=== PATIENT | female | born 1960 | race Two or more races ===

== ENCOUNTER 2020-08-16 20:01 | Emergency (ER) | payer MEDICAID, OTHER ==
[~2020-08-16] VITALS: Ht 162.6 cm; Wt 81.6 kg
[2020-08-16 20:53] LABS: Basophils # (auto) 0 10 ^3/uL (0-0.2); Basophils % (auto) 0.3 % (0.0-2.0); Eosinophils # (auto) 0.1 10 ^3/uL (0-0.8); Eosinophils % (auto) 1.1 % (0.0-7.0); Hematocrit 40.7 % (36.0-46.0); Hemoglobin 14.2 g/dL (12.2-16.2); Lymphocytes # (auto) 2.8 10 ^3/uL (0.4-5.4); Lymphocytes % (auto) 34.1 % (10.0-50.0); Mean Corpuscular Hemoglobin 30.7 pg (28.0-32.0); Mean Corpuscular Hgb Conc. 34.8 g/dL (32.0-36.0); Mean Corpuscular Volume 88.3 fL (80.0-100.0); Monocytes # (auto) 0.3 10 ^3/uL (0-1.3); Monocytes % (auto) 3.3 % (0.0-12.0); Neutrophils % (auto) 61.2 % (37.0-80.0); Nucleated Red Blood Cells % 0.1 %; Red Blood Cells 4.62 10^6/uL (4.0-5.20); Red Cell Distribution Width 14.2 % (11.8-14.3); White Blood Cell 8.2 10^3/uL (4.4-10.8)
[2020-08-16 21:00] LABS: Albumin 3.9 g/dL (3.4-5.0); Anion Gap 4 (5-15); Calcium 8.8 mg/dL (8.5-10.1); Carbon Dioxide 28 mmol/L (21-32); Chloride 112 mmol/L (98-107); Glucose 103 mg/dL (74-106); Potassium 3.9 mmol/L (3.5-5.1); Sodium 144 mmol/L (136-145)
[2020-08-16 21:05] LABS: Alanine Aminotransferase 39 U/L (13-56); Alkaline Phosphatase 130 U/L (45-117); Aspartate Aminotransferase 27 U/L (15-37); Bilirubin, Total 0.3 mg/dL (0.2-1.0); GFR African American 98 mL/min; GFR Non-African American 81 mL/min; Total Protein 7.3 g/dL (6.4-8.2)
[2020-08-16 21:11] LABS: Urine Bacteria FEW /hpf (None Seen); Urine Blood Negative /uL (Negative); Urine Mucus FEW (None Seen); Urine Specific Gravity 1.026 (1.001-1.035); Urine WBC 1 /hpf (0 - 5)
[2020-08-16] MEDS ORDERED: ASPirin 81 mg TAB PO ONE (21:15)
[2020-08-16 21:58] LABS: BUN/Creatinine Ratio 17.9; Blood Urea Nitrogen 14 mg/dL (7-18)
[2020-08-16 22:06] LABS: INR 0.97 (0.9-1.15); Partial Thromboplastin Time 24.9 sec (23.0-31.2)
[2020-08-17 00:18] VITALS: BP 122/82
== END 2020-08-17 00:21 | disposition home or self-care (01) ==
LOC: ER 20:01
DX: R07.89 Other chest pain (principal); N39.0 Urinary tract infection, site not specified
CPT/HCPCS: 36415; 71045; 80053; 81001; 83735; 83880; 84443; 84484; 85025; 85049; 85379; 85610; 85730; 93005

== ENCOUNTER 2022-02-21 12:36 | Emergency (ER) | payer MEDICAID ==
[~2022-02-21] VITALS: Ht 160 cm; Wt 80.5 kg
[2022-02-21 13:33] LABS: Urine Bacteria NONE SEEN /hpf (None Seen); Urine Blood Negative /uL (Negative); Urine Mucus FEW (None Seen); Urine Specific Gravity 1.024 (1.001-1.035); Urine WBC 5 /hpf (0 - 5)
[2022-02-21 13:46] VITALS: BP 110/60
[2022-02-21 14:17] LABS: Basophils # (auto) 0.1 10 ^3/uL (0-0.2); Basophils % (auto) 0.9 % (0.0-2.0); Eosinophils # (auto) 0.1 10 ^3/uL (0-0.8); Eosinophils % (auto) 1.1 % (0.0-7.0); Hematocrit 42.3 % (36.0-46.0); Lymphocytes # (auto) 2.3 10 ^3/uL (0.4-5.4); Lymphocytes % (auto) 33.9 % (10.0-50.0); Mean Corpuscular Hemoglobin 29.6 pg (28.0-32.0); Mean Corpuscular Hgb Conc. 33.2 g/dL (32.0-36.0); Mean Corpuscular Volume 89.1 fL (80.0-100.0); Monocytes # (auto) 0.3 10 ^3/uL (0-1.3); Monocytes % (auto) 4.4 % (0.0-12.0); Neutrophils # (auto) 4.1 10 ^3/uL (1.6-8.6); Neutrophils % (auto) 59.7 % (37.0-80.0); Nucleated Red Blood Cells % 0.2 %; Red Blood Cells 4.74 10^6/uL (4.0-5.20); Red Cell Distribution Width 13.9 % (11.8-14.3); White Blood Cell 6.9 10^3/uL (4.4-10.8)
[2022-02-21 14:38] LABS: Albumin 3.8 g/dL (3.4-5.0); Anion Gap 6 (5-15); Blood Urea Nitrogen 14 mg/dL (7-18); Calcium 9.4 mg/dL (8.5-10.1); Carbon Dioxide 29 mmol/L (21-32); Chloride 107 mmol/L (98-107); Glucose 107 mg/dL (74-106); Potassium 3.8 mmol/L (3.5-5.1); Sodium 142 mmol/L (136-145)
[2022-02-21 14:41] LABS: Alanine Aminotransferase 37 U/L (13-56); Aspartate Aminotransferase 24 U/L (15-37); BUN/Creatinine Ratio 21.5; GFR African American 120 mL/min; GFR Non-African American 99 mL/min
[2022-02-21 14:49] LABS: Alkaline Phosphatase 111 U/L (45-117); Bilirubin, Total < 0.1 mg/dL (0.2-1.0)
[2022-02-21] MEDS ORDERED: BACDST PO (15:32)
[2022-02-21] MEDS ORDERED: MECL1TAB42 PO (15:32)
== END 2022-02-21 15:42 | disposition home or self-care (01) ==
LOC: ER 12:36
DX: R42 Dizziness and giddiness (principal); N39.0 Urinary tract infection, site not specified; K21.9 Gastro-esophageal reflux disease without esophagitis
CPT/HCPCS: 36415; 70450; 80053; 81001; 85025

== ENCOUNTER 2022-09-17 11:46 | Emergency (ER) | payer MEDICAID ==
[~2022-09-17] VITALS: Ht 162.6 cm; Wt 80.1 kg
[~2022-09-17 11:46] MED LIST: BACDST PO; MECL1TAB42 PO
[2022-09-17 12:25] VITALS: BP 128/74; PULSE 70; RESP 16; TEMP 97.4; O2SAT 95
[2022-09-17] MEDS ORDERED: KETOROLAC TROMETH 60MG/2ML VIAL IM ONE (12:45)
[2022-09-17] MEDS ORDERED: IBUP-1456 PO (13:18)
[2022-09-17] MEDS ORDERED: METH-1182 PO (13:18)
== END 2022-09-17 13:28 | disposition home or self-care (01) ==
LOC: ER 11:46
DX: S39.012A Strain of muscle, fascia and tendon of lower back, initial encounter (principal); K21.9 Gastro-esophageal reflux disease without esophagitis; Z88.6 Allergy status to analgesic agent; X50.1XXA Overexertion from prolonged static or awkward postures, initial encounter; Y93.01 Activity, walking, marching and hiking; Y92.89 Other specified places as the place of occurrence of the external cause; Y99.8 Other external cause status
CPT/HCPCS: 72100; 96372; 99283; J1885